=== PATIENT | male | born 1960 | race Caucasian/White ===

== ENCOUNTER → 2019-05-03 16:41 | Outpatient (CLI) | payer OTHER, SELFPAY ==
--- NOTE | ~2019-05-03 | MR_ITS ---
EXAMINATION: MR knee RT wo con DATE: 05/03/2019 17:30 INDICATION: Chronic right knee pain. TECHNIQUE: Magnetic resonance imaging (MRI) of the right knee was performed without intravenous contr ast. Sequences included axial PD-weighted FS FSE, coronal PD-weighted FSE and PD-weighted FS FSE, sag ittal PD-weighted FSE, and sagittal T2-weighted FS FSE. COMPARISON: Right knee radiographs 05/03/2019 FINDINGS: Medial compartment: There is a radial tear of body of medial meniscus. There is shallow partial thickness cartilage loss of femoral condyle involving the central and medial articular surface. There is cartilage surface irr egularity of tibial condyle. Lateral compartment: Lateral meniscus is normal. There is cartilage surface irregularity of tibial condyle and femoral con dyle. Patellofemoral compartment: There is cartilage surface irregularity of patellar lateral facet. Trochlear cartilage is normal. Ligaments and tendons: The anterior and posterior cruciate ligaments are normal. Medial collateral ligament and lateral cherrie ateral ligament complex are normal. There is mild patellar tendinopathy. Fluid: There is a small knee joint effusion. There is mild prepatellar and superficial infrapatellar bursiti s. IMPRESSION: 1. Mild tricompartmental chondrosis. 2. Radial tear of medial meniscus. 3. Small knee joint effusion. Reviewed, dictated and finalized at location A. BLANK MACHINE OPERATOR
--- NOTE | ~2019-05-03 | XR_ITS ---
XR knee RT 3V 05/03/2019 17:54 INDICATION: Chronic right knee pain PROCEDURE: 3 views right knee COMPARISON: No prior studies for comparison. FINDINGS: Fracture, dislocation or subluxation is not identified. No significant joint effusion. The soft tissues appear within normal limits. No foreign bodies are identified. IMPRESSION: 1: NO ACUTE BONE OR JOINT ABNORMALITY IDENTIFIED. Reviewed, dictated and finalized at location A. CAR DRIVER
== END ==
PROVIDERS: Visit Provider Physician Assistant
DX: M17.11 Unilateral primary osteoarthritis, right knee (principal); G89.29 Other chronic pain; M23.231 Derangement of other medial meniscus due to old tear or injury, right knee; M25.461 Effusion, right knee
CPT/HCPCS: 73562; 73721

== ENCOUNTER 2020-03-01 11:02 | Outpatient (CLI) | payer OTHER, SELFPAY ==
--- NOTE | ~2020-03-01 | MR_ITS ---
EXAMINATION: MR knee LT wo con DATE: 03/01/2020 11:49 INDICATION: Chronic left knee pain. TECHNIQUE: Magnetic resonance imaging (MRI) of the left knee was performed without intravenous contra st. Sequences included axial PD-weighted FS FSE, coronal PD-weighted FSE and PD-weighted FS FSE, sagi ttal PD-weighted FSE, and sagittal T2-weighted FS FSE. COMPARISON: Left knee radiographs 03/01/2020 FINDINGS: Medial compartment: There is a radial tear of the junction of body and posterior horn of medial meniscus. The medial comp artment cartilage is normal. Lateral compartment: Lateral meniscus is normal. The lateral compartment cartilage is normal. Patellofemoral compartment: The patellar cartilage is normal. Trochlear cartilage is normal. Ligaments and tendons: The anterior and posterior cruciate ligaments are normal. There is edema around the medial collateral ligament, consistent with mild sprain. Lateral collateral ligament complex is normal. The patellar t endon is normal. Fluid: There is a small knee joint effusion. There is mild prepatellar and superficial infrapatellar bursiti s. There is trace fluid in a Garcia's cyst. IMPRESSION: 1. Tear of medial meniscus. 2. Grade 1 sprain of medial collateral ligament. 3. Small knee joint effusion. Reviewed, dictated and finalized at location A. EEPER
--- NOTE | ~2020-03-01 | XR_ITS ---
EXAMINATION: XR knee LT 3V EXAM DATE: 03/01/2020 12:03 INDICATION: Chronic pain of left knee, anteriorly. No recent injury. TECHNIQUE: Three projections of the left knee. There is no prior study for comparison. FINDINGS: No evidence osteochondral defect or joint body in the left knee joint. There is minimal p atellofemoral compartment primary osteoarthritis. No joint effusion. There are no acute fractures or dislocations identified. There is no subcutaneous gas. The soft tissue is unremarkable. There are no radiopaque foreign bodies. IMPRESSION: Minimal patellofemoral compartment osteoarthritis. Reviewed, dictated and finalized at location G. LING SUPERVISOR
== END 2020-03-01 11:03 | disposition home or self-care (01) ==
LOC: ANHIMG 11:11
PROVIDERS: PCP Physician Assistant; Visit Provider Physician Assistant
DX: M23.52 Chronic instability of knee, left knee (principal); M17.12 Unilateral primary osteoarthritis, left knee; S83.242A Other tear of medial meniscus, current injury, left knee, initial encounter; M25.462 Effusion, left knee; S83.412A Sprain of medial collateral ligament of left knee, initial encounter
CPT/HCPCS: 73562; 73721

== ENCOUNTER 2022-04-19 10:17 | Outpatient (CLI) | payer OTHER, SELFPAY ==
--- NOTE | ~2022-04-19 | XR_ITS ---
EXAMINATION: XR lg joint inject/asp w image DATE: 04/19/2022 10:56 INDICATION: Right hip pain. TECHNIQUE: A time-out was performed to verify the patient's name, date of , and procedure to b e performed. The procedure including the risks, benefits, and alternatives was discussed with the pat ient. Risks discussed included bleeding and infection. The patient understood the risks and agreed to proceed. The skin overlying the right hip joint was prepped and draped in usual sterile fashion. A nesthetic was administered with 1% lidocaine subcutaneously. A 22 G needle was advanced under fluoro scopic guidance into the joint. Subsequently, injectate consisting of 5 mL 1% lidocaine and 2 mL 10 mg/mL Kenalog was instilled. The needle was removed and the entry site was cleaned and dressed. The re were no immediate complications. Fluoroscopy exposure time was 0.1 minutes. The total number of im ages was 1. FINDINGS: Real-time fluoroscopy demonstrates the needle in the right hip joint. IMPRESSION: 1. Fluoroscopy guided right hip joint injection of local anesthetic and steroid. Reviewed, dictated and finalized at location A. RONMENTAL PROTECTION FORESTER IMPRESSION: 1. Fluoroscopy guided right hip joint injection of local anesthetic and steroid .
== END 2022-04-19 10:18 | disposition home or self-care (01) ==
PROVIDERS: PCP Physician Assistant; Visit Provider Nurse Practitioner
DX: M25.551 Pain in right hip (principal)
CPT/HCPCS: 20610; 77002; J3301

== ENCOUNTER 2022-05-18 09:32 | Outpatient (CLI) | payer OTHER, SELFPAY ==
--- NOTE | ~2022-05-18 | US_ITS ---
EXAMINATION: US knee asp inj w image RT DATE: 05/18/2022 10:52 INDICATION: Right knee pain. Right knee joint effusion. TECHNIQUE: The procedure including the risks, benefits, and alternatives was discussed with the patie nt. Risks discussed included bleeding and infection. The patient understood the risks and agreed to p roceed. The skin overlying the right knee was prepped and draped in usual sterile fashion. Anestheti c was administered with 1% lidocaine subcutaneously. An 18-gauge spinal needle was inserted into the knee joint using sonographic guidance. Fluid was aspirated. The entry site was cleaned and dressed. There were no immediate complications. FINDINGS: Ultrasound images demonstrate a small right knee joint effusion. IMPRESSION: 1. Ultrasound-guided needle aspiration of the right knee joint yielding 10 mL red fluid. Reviewed, dictated and finalized at location A. STRY FOREMAN IMPRESSION: 1. Ultrasound-guided needle aspiration of the right knee joint yielding 10 mL r ed fluid.
[2022-05-18 11:59] LABS: Appearance Synovial Fluid Bloody (Clear); Color Synovial Fluid Red (Colorless); Source Synovial Fluid Synovial fluid
[2022-05-18 12:00] LABS: Lymphocytes Synovial Fluid 12 %; Monocytes Synovial Fluid 4 %; Neutrophils Synovial Fluid 84 % (0-25)
[2022-05-18 12:02] LABS: Crystals Synovial Fluid None Seen (None Seen)
[2022-06-07 08:32] LABS: Reference Lab Test Result Negative
== END 2022-05-18 09:33 | disposition home or self-care (01) ==
PROVIDERS: PCP Physician Assistant; Visit Provider Nurse Practitioner
DX: M25.561 Pain in right knee (principal); M25.461 Effusion, right knee
CPT/HCPCS: 20611; 36415; 87070; 87075; 87205; 89051; 89060

== ENCOUNTER 2024-12-07 06:56 | Outpatient (CLI) | payer OTHER, SELFPAY ==
--- NOTE | ~2024-12-07 | MR_ITS ---
EXAMINATION: MR foot LT wo con DATE: 12/07/2024 07:27 INDICATION: Left foot pain TECHNIQUE: Magnetic resonance imaging (MRI) of the left foot which includes the ankle but excludes the forefoot distal to the mid metatarsals was performed without intravenous contrast. Sequences included sagittal T1-weighted FSE, sagittal fluid sensitive FSE STIR, coronal PD-weighted FS FSE, coronal T1- weighted FSE, axial PD-weighted FS FSE, and axial PD-weighted FSE. COMPARISON: None FINDINGS: Medial ankle ligaments: Deep and superficial deltoid ligaments as well as the spring ligament are normal. Lateral ankle ligaments: The anterior inferior tibiofibular ligament is normal. There is prominent hypertrophic osteophyte along the distal tibial insertion of the otherwise unremarkable posterior inferior tibiofibular ligament which could be either enthesopathic in etiology or sequela of a chronic avulsion injury. The anterior talofibular, calcaneofibular and posterior talofibular ligaments are normal. Tendons: Mild Achilles tendinosis without discrete tear characterized by minimal fusiform thickening and mild increased intrasubstance signal centered approximately 4.5 cm proximal to the calcaneal insertion. [place] increased fluid signal extending along the normal-appearing peroneus longus and brevis consistent with mild peroneal tenosynovitis. The tibialis anterior and extensor hallucis longus and extensor digitorum longus tendons are normal. Mild tendinopathy without discrete tear at the distal tibialis posterior tendon. The flexor digitorum longus and flexor hallucis longus tendons are normal. Plantar fascia: There is thickening and increased signal of the central component of the plantar aponeurosis with mild surrounding soft tissue edema. Minimal marrow edema at a moderate-sized plantar calcaneal spur. Findings consistent with moderate chronic enthesopathy with mild plantar fasciitis. Bones/other: Bone alignment is normal. No acute fracture. Moderate osteoarthritis with subarticular cystlike changes at the third tarsal metatarsal joint. Additional minimal and mild osteoarthritis throughout the remainder of the mid and hindfoot and minimal osteoarthritis at the ankle. Fluid: Physiologic amount fluid in the joint spaces. IMPRESSION: 1. Likely acute on chronic plantar fasciitis. 2. Mild tendinopathy without tear of the distal tibialis posterior tendon. 3. Mild peroneal tenosynovitis with normal appearing peroneal tendons. Line 4. Mild Achilles tendinosis without tear. 4. Polyarticular osteoarthritis, moderate severity with high-grade chondral malacia the third tarsal metatarsal joint and minimal to mild at the remaining joints in the mid and hindfoot. 5. Prominent hypertrophic osteophytes at the posterior lateral aspect of the distal tibia along the footplate of the otherwise normal-appearing posterior tibiofibular ligament which could be due to either chronic enthesopathy or more likely sequela of a prior chronic avulsion injury. Reviewed, dictated and finalized at location A. IMPRESSION: 1. Likely acute on chronic plantar fasciitis. 2. Mild tendinopathy without tear of the distal tibialis posterior tendon. 3. Mild peroneal tenosynovitis with normal appearing peroneal tendons. Line 4. Mild Achilles tendinosis without tear. 4. Polyarticular osteoarthritis, moderate severity with high-grade chondral mal acia the third tarsal metatarsal joint and minimal to mild at the remaining govind nts in the mid and hindfoot. 5. Prominent hypertrophic osteophytes at the posterior lateral aspect of the di stal tibia along the footplate of the otherwise normal-appearing posterior tibi ofibular ligament which could be due to either chronic enthesopathy or more lik hailey sequela of a prior chronic avulsion injury.
== END 2024-12-07 06:57 | disposition home or self-care (01) ==
LOC: MICIMG 06:58
PROVIDERS: PCP Physician Assistant; Visit Provider Physician Assistant
DX: M76.822 Posterior tibial tendinitis, left leg (principal); M65.88 Other synovitis and tenosynovitis, other site; M76.72 Peroneal tendinitis, left leg; M76.62 Achilles tendinitis, left leg; M15.9 Polyosteoarthritis, unspecified; M94.20 Chondromalacia, unspecified site; M94.272 Chondromalacia, left ankle and joints of left foot; M25.775 Osteophyte, left foot
CPT/HCPCS: 73718

== ENCOUNTER 2025-02-14 07:00 | Outpatient (CLI) | payer OTHER, SELFPAY ==
--- NOTE | ~2025-02-14 | MR_ITS ---
EXAMINATION: MR knee RT wo con DATE: 02/14/2025 07:36 INDICATION: Bilateral knee pain TECHNIQUE: Magnetic resonance imaging (MRI) of the right knee was performed without intravenous contrast. Sequences included coronal PD-weighted FSE, coronal PD-weighted FS FSE, sagittal T2-weighted FSE, sagittal PD-weighted FS FSE and axial PD weighted fat saturated FSE. COMPARISON: None. FINDINGS: Medial compartment: The medial meniscal body is small and there is truncation of the normally sharp inner free edge of the anterior horn and body of the medial meniscus with irregular contour evident on axial series 3, image 19 consistent with prior partial meniscectomy. On the axial images there is a more focal defect along the inner free edge of the posterior horn with a more abrupt change in contour than expected post partial meniscectomy and could not exclude a recurrent small radial tear along the inner third. There is subtle increased signal extending to the inferior articular surface at the peripheral third of the remaining posterior horn which is equivocal for residual/recurrent tear versus previously repaired tear for which there is a provided history. Correlate with details of the prior surgery and/or any prior outside imaging. Partial-thickness cartilage loss along the medial third of the anterior to central weightbearing medial femoral condyle with superimposed central small partial-thickness chondral f issure. No degenerative subchondral changes. Diffuse mild partial-thickness cartilage loss with smooth chondral surface and without degenerative subchondral changes along the medial tibial plateau. Lateral compartment: Lateral meniscus is normal. Tiny focus of subarticular edema-like signal change likely related to overlying chondral fissure at the central aspect of the lateral tibial plateau. The articular cartilage appears otherwise normal. Patellofemoral compartment: Partial-thickness chondral ulceration involving approximately 50% the cartilage thickness at the cephalad aspect of the medial trochlea with second small region involving less than 50% the cartilage thickness at the central aspect of the trochlear groove. Patellar cartilage is normal. Ligaments and tendons: Anterior and posterior cruciate ligaments are normal. The medial collateral ligament and fibular collateral ligament complex are normal. Mild distal quadriceps tendinopathy/enthesopathy without discrete tear. Patellar tendon is normal. The visualized medial and lateral hamstring tendons as well as the iliotibial band are normal. Fluid: Physiologic amount of fluid in the joint space. No loose osteochondral bodies identified. Osseous/other: No fracture or pathologic marrow replacing process. Mild prepatellar edema without discrete bursal fluid collection. There is also edema in the superficial suprapatellar fat pad which can be seen with fat pad impingement syndrome. There is scarring at the medial lateral aspects of Hoffa's fat pad consistent with prior arthroscopy. IMPRESSION: 1. Postoperative change of prior partial right meniscectomy with possible repaired some residual versus recurrent tear extending to the inferior articular surface at the peripheral third of the remaining posterior horn and possible small radial tear versus site of partial meniscectomy along the free edge of the posterior horn. Correlate with details of prior surgery and with any prior outside imaging if available. 2. Mild osteoarthritis with moderate grade chondromalacia in the medial and patellofemoral compartments. 3. Mild distal quadriceps tendinopathy/enthesopathy without tear. 4. Prepatellar edema as well as edema in the superficial suprapatellar fat pad, the latter which can be seen with fat pad impingement syndrome. Reviewed, dictated and finalized at location A. ICAL THERAPY PROFESSOR IMPRESSION: 1. Postoperative change of prior partial right meniscectomy with possible repai red some residual versus recurrent tear extending to the inferior articular alison face at the peripheral third of the remaining posterior horn and possible small radial tear versus site of partial meniscectomy along the free edge of the pos terior horn. Correlate with details of prior surgery and with any prior outside imaging if available. 2. Mild osteoarthritis with moderate grade chondromalacia in the medial and pat ellofemoral compartments. 3. Mild distal quadriceps tendinopathy/enthesopathy without tear. 4. Prepatellar edema as well as edema in the superficial suprapatellar fat pad, the latter which can be seen with fat pad impingement syndrome.
== END 2025-02-14 07:01 | disposition home or self-care (01) ==
LOC: MICIMG 07:00
PROVIDERS: PCP Physician Assistant; Visit Provider Orthopaedic Surgery
DX: M17.11 Unilateral primary osteoarthritis, right knee (principal); M22.41 Chondromalacia patellae, right knee; M76.891 Other specified enthesopathies of right lower limb, excluding foot; M25.861 Other specified joint disorders, right knee; Z98.890 Other specified postprocedural states
CPT/HCPCS: 73721